=== PATIENT | male | born 1970 | race Caucasian/White ===

== ENCOUNTER 2022-06-15 13:57 | Inpatient (IN) | payer OTHER ==
[~2022-06-15] VITALS: Ht 170.2 cm; Wt 117.9 kg
[2022-06-15 14:22] VITALS: BP_SYST 145
--- NOTE | 2022-06-15 14:22 | NUR ---
Patient triaged and placed in waiting room. VSS and patient appears in no acute distress at this time. Accompanied by SELF, awaiting available bed, and MD notified of need for MSE.
[2022-06-15] MEDS ORDERED: PIPERACILLIN/TAZO 3.375 GM in NS 50 ML IV ONE (14:45)
[2022-06-15] MEDS ORDERED: VANCOMYCIN HCL 1,000 MG in NS 250 ML IV ONE (14:45)
--- NOTE | 2022-06-15 15:06 | NUR ---
Placed in room 04 . Placed on awake overnight monitor, blood pressure machine and pulse oximeter. To gown for exam. Side rails up. Report given to LORAINE LANDA.
--- NOTE | 2022-06-15 15:10 | NUR ---
PT BIB SELF, AWAKE AND ALERT, AOX4. NO SOB OR DISTRESS. PT C/O PAIN TO R FEET, WHICH PRESENTED W/ BLISTER, EDEMA +2, REDNESS AND WARMTH TO THE TOUCH. PT STATED ITS BEEN X4 DAYS. PT STATES PAIN 01/05. PT WAS AMBULATORY W/O ASSISTANCE. PT DENIES N/V. PT HAS HX OF DM2 BUT ADMIT NON COMPLIANCE WITH INSULINE ADMINISTRATION AND BS CHECKS.
[2022-06-15 15:14] LABS: BASOPHILS # (AUTO) 0.1 K/uL (0.0-0.2); BASOPHILS % (AUTO) 0.6 % (0.0-2.0); CALCIUM 9.4 mg/dL (8.4-11.0); CREATININE 1.05 mg/dL (0.55-1.30); EOSINOPHILS % (AUTO) 0.1 % (0.0-4.0); HEMATOCRIT 38.5 % (36-54); HEMOGLOBIN 13.5 g/dL (14.0-18.0); LYMPHOCYTES # (AUTO) 0.6 K/uL (1.0-5.5); MEAN CORPUSCULAR HEMOGLOBIN 29 pg (27-31); MEAN CORPUSCULAR HGB CONC 35 % (32-36); MEAN CORPUSCULAR VOLUME 82 fL (79.0-98.0); MONOCYTES # (AUTO) 1.2 K/uL (0.0-1.0); MONOCYTES % (AUTO) 7.4 % (1.7-9.3); NEUTROPHILS # (AUTO) 13.8 K/uL (1.8-7.7); NEUTROPHILS % (AUTO) 87.9 % (40.0-70.0); PLATELET COUNT (AUTO) 257 K/uL (130-430); RED BLOOD CELL COUNT(AUTO) 4.68 MIL/uL (4.2-6.2); RED CELL DISTRIBUTION WIDTH 13.4 % (9.0-15.0); WHITE BLOOD COUNT (AUTO) 15.7 K/uL (4.8-10.8)
--- NOTE | 2022-06-15 15:15 | NUR ---
MD DR BOONE AT BEDSIDE
[2022-06-15 15:20] LABS: ALBUMIN 2.6 g/dL (3.4-4.8); TOTAL BILIRUBIN 0.8 mg/dL (0.0-1.0)
[2022-06-15] MEDS ORDERED: INSULIN Lispro 100 UNITS/ML, 3 ML VIAL (humaLOG) SUBCUT ONE (15:45)
[2022-06-15] MEDS ORDERED: NACL 0.9% 1,000 ML IV ONE (15:45)
[2022-06-15] MEDS ORDERED: VANCOMYCIN HCL 1000 MG/VIAL IV ONE ×2 (15:53→23:22)
[2022-06-15 15:54] LABS: ERYTHROCYTE SEDIMENTATION RATE 80 MM/HR (0-15)
--- NOTE | 2022-06-15 16:13 | NUR ---
COVID SPECIMEN COLLECTED FROM BILATERAL NARES DELIVERED SPECIMEN TO LAB.
--- NOTE | 2022-06-15 17:37 | NUR ---
Admit bed requested Patient will be admitted to care of . Admitted to MS unit. Diagnosis DIABETIC FOOT ULCER Inpatient (Yes or No) YES Observation (Yes or No) NO Orientation concerns or request close to nursing station (Yes or No) NO Covid Status NEGATIVE On vent or bipap NO Isolation requirements NO Needs a sitter NO From Home (Yes or if No enter name of facility) HOME Requires Dialysis (Yes or No) NO Med Rec Completed (Yes of No) YES
[2022-06-15] MEDS ORDERED: SITA100T11 PO (18:14)
[2022-06-15] MEDS ORDERED: METF-380 PO (18:14)
[2022-06-15] MEDS ORDERED: SIMV-43 PO (18:14)
[2022-06-15] MEDS ORDERED: INSU100V11 SQ (18:14)
[2022-06-15] MEDS ORDERED: LOSA50TA28 PO (18:14)
[2022-06-15] MEDS ORDERED: GLIP10TA21 PO (18:14)
[2022-06-15] MEDS ORDERED: PIPERACILLIN/TAZOBACTAM 3.375 GM/VIAL (ZOSYN) IV ONE ×2 (18:31→23:21)
--- NOTE | 2022-06-15 19:44 | NUR ---
GAVE REPORT TO ONCOMING LORAINE GONZALEZ. PT STABLE. ALL MEDS GIVEN. VSS
--- NOTE | 2022-06-15 20:04 | NUR ---
Received report for patient AOX4 Verbally responsive Able to make needs known Will continue to monitor
--- NOTE | 2022-06-15 20:58 | NUR ---
Patient will be admitted to [facility]. Admitted to MED/SURGE unit. Will go to room 101A. Belongings list completed. Complete and up to date summary report printed. SBAR report to be given at bedside with opportunity for questions.
--- NOTE | 2022-06-15 21:23 | NUR ---
Admission Note Received patient from ER with diagnosis of DIABETIC FOOT ULCER. Initial Plan of Care discussed-patient verbalized understanding. Oriented to room, call light, pain management and safety.
--- NOTE | 2022-06-15 21:23 | NUR ---
Patient presenting with fever, paged Dr. Susan Davis gives following orders: Consults for: Dr. Louie, René, and Wilian NS @ 125/hr Tylenol 650 PO Q6HPRN for mild pain and fever ACHS accucheck with regular insulin sliding scale Zosyn 3.375 q6h IVPB Vancomycin with pharmacy to dose CCHO diet order Addendum: 06/15/22 at 2125 by Terence Posey RN additional order: change patient to telemetry
[2022-06-15] MEDS: ACETAMINOPHEN 325 MG TABLET PO PRN (21:38)
[2022-06-15 22:51] VITALS: BP_SYST 129
[2022-06-15] MEDS ORDERED: VANCOMYCIN HCL 1 GM/NS PREMIX 250 ML IV ONE (23:00)
--- NOTE | 2022-06-15 23:00 | NUR ---
INITIAL NOTE AT INITIAL ASSESSMENT, PATIENT IS RESTING IN BED, STABLE, NO SIGNS OF RESPIRATORY DISTRESS. PATIENT VERBALIZES HEADACHE, PRN MEDICATION GIVEN TO PATIENT FOR HIS HEADACHE. PLAN OF CARE FOR THE EVENING IS COMMUNICATED WITH PATIENT. CALL LIGHT TEACH BACK IS SUCCESSFUL. BED IS LOCKED, AND AT THE LOWEST LEVEL. URINAL AND URINAL CASTRO PROVIDED FOR CONVENIENCE. FALL AND SAFETY PRECAUTIONS WILL BE IN PLACE THROUGHOUT THE SHIFT.
[2022-06-15] MEDS: NACL 0.9% 1,000 ML IV SCH (23:18)
--- NOTE | 2022-06-15 23:30 | NUR ---
WOUND CARE WOUND CARE PERFORMED AT THIS TIME. PATIENT IS UNABLE TO FEEL AND MOVE WITH HIS THREE MIDDLE TOES. HIS LOWER LEG IS RED AND WARM, FLUSHED WITH NS, PATTED DRY. WILL KEEP CLEAN DRY AND OPEN TO AIR, AWAITING FOR MD TO ASSESS. PATIENT TOLERATED WELL. PATIENT VERBALIZES SOME PAIN AT HIS RIGHT ANKLE, STATING THE PAIN "COMES AND GOES" EVEN AT REST. WOUND PICTURES TAKEN IN FILED IN PATIENT CHART.
[2022-06-16] VITALS: BP_SYST 116
[2022-06-16] MEDS: PIPERACILLIN/TAZO 3.375/DEX-IS 50 ML IV SCH ×2 (00:06→23:17)
--- NOTE | 2022-06-16 00:23 | NUR ---
CONSULTATION PAGED/CALLED Reason for Consultation: TACKYCARDIA AND FEVER Person Who was Notified: EXCHANGE Consulting Physician: ELIUD Packaging Associate Specialty: Ordering Physician: ELINA
--- NOTE | 2022-06-16 00:25 | NUR ---
CONSULTATION PAGED/CALLED Reason for Consultation: DIABETIC FOOT ULCER Person Who was Notified: ERICK Consulting Physician: [place] Soft Work Wrapper Examiner Specialty: Ordering Physician: JANAY
--- NOTE | 2022-06-16 01:15 | NUR ---
ROUNDS PATIENT IS SLEEPING, STABLE, NO SIGNS OF RESPIRATORY DISTRESS.
[2022-06-16] MEDS: INSULIN REGULAR, HUMAN 100 UNITS/ML, 3 ML VIAL (humuLIN R) SUBCUT PRN ×5 (02:36→21:32)
[2022-06-16] MEDS: ACETAMINOPHEN 325 MG TABLET PO PRN (03:22)
--- NOTE | 2022-06-16 03:43 | NUR ---
Edith CEDILLO PAGED DR. GUSTAFSON PAGED AT THIS TIME FOR PATIENT'S SEVERE PAIN COMPLAINT ON RIGHT ANKLE. AWAITING PAGE BACK.
--- NOTE | 2022-06-16 05:10 | NUR ---
ROUNDS PATIENT IS SLEEPING, STABLE, NO SIGNS OF RESPIRATORY DISTRESS.
--- NOTE | 2022-06-16 05:35 | NUR ---
CONSULTATION PAGED/CALLED Reason for Consultation: DIABETIC FOOT ULCER Person Who was Notified:EXCHANGE Consulting Physician: DARIAN Business Support Associate Specialty: Ordering Physician: JANAY
--- NOTE | 2022-06-16 05:50 | NUR ---
COMMUNICATION W/ DR. DARIAN FARMER PAGED AT THIS TIME, PATIENT'S SITUATION EXPLAINED TO MD. MD GAVE NEW ORDERS. ALL ORDERS READ BACK AND VERIFIED.
--- NOTE | 2022-06-16 06:29 | NUR ---
CLOSING NOTE PATIENT SLEPT WELL DURING THE NIGHT. PATIENT VERBALIZED THAT PRN MEDICATION GIVEN TO HIM FOR HIS PAIN WERE EFFECTIVE. CALL LIGHT IS WITHIN REACH. BED IS LOCKED, ALARMED, AND AT THE LOWEST LEVEL. FALL, SAFETY, AND RESPIRATORY PRECAUTIONS HAVE BEEN IN PLACE THROUGHOUT THE SHIFT. WILL CONTINUE TO MONITOR UNTIL REPORT IS GIVEN AT BEDSIDE TO AM NURSE.
[2022-06-16] MEDS ORDERED: ACETAMINOPHEN 325 MG TABLET PO PRN (06:45)
[2022-06-16] MEDS: NACL 0.9% 1,000 ML IV SCH ×3 (06:54→21:45)
[2022-06-16] MEDS: traMADol HCL HCL 50 MG TABLET (ULTRAM) PO PRN ×3 (06:58→21:22)
[2022-06-16 07:00] VITALS: BP_SYST 157
[2022-06-16 08:00] VITALS: BP_SYST 157
[2022-06-16 12:00] VITALS: BP_SYST 165
--- NOTE | 2022-06-16 12:13 | NUR ---
Dietitian Recommendations *Continue consistent CHO diet, consider dropping CHO to 45/meal *Consider Glucerna ONS BID to help pt meet nutrition needs *Consider banatrol if pt diarrhea persists GS, RD Please refer to RD assessment for further details Addendum: 06/16/22 at [address] Amended: Links added. Addendum: 06/16/22 at [address] *Consider adding Harrison BID to aid diabetic ulcer healing
[2022-06-16] MEDS: VANCOMYCIN HCL 1,500 MG in NS 250 ML IV SCH (13:55)
[2022-06-16 20:40] VITALS: BP_SYST 154
--- NOTE | 2022-06-16 20:45 | NUR ---
Opening notes Pt asleep, easily awakens no s/s distress noted. Pt connected back to IVF as ordered. Pt has good urine output. Call light within reach. Bed low, locked, siderails up x2. To monitor.
[2022-06-16] MEDS: glipiZIDE XL 5 MG TAB ( GLUCOTROL XL) PO SCH (21:21)
[2022-06-16] MEDS: SIMVASTATIN 20 MG TABLET PO SCH (21:21)
[2022-06-16] MEDS: INSULIN GLARGINE 100 UNITS/ML, 10 ML VIAL SUBCUT SCH (21:31)
[2022-06-17] VITALS: BP_SYST 152
--- NOTE | 2022-06-17 00:05 | NUR ---
Wound care Right foot wound care performed. Cleansed with NS, patted dry, applied hydrogel, covered with optifoam and wrapped with Kerlix gauze. Noted small yellow drainage with odor. Pt tolerated well. To monitor.
[2022-06-17] MEDS: VANCOMYCIN HCL 1,500 MG in NS 250 ML IV SCH ×2 (01:50→12:12)
[2022-06-17] MEDS: ACETAMINOPHEN 325 MG TABLET PO PRN ×2 (01:55→08:18)
[2022-06-17] MEDS: traMADol HCL HCL 50 MG TABLET (ULTRAM) PO PRN ×3 (05:05→20:48)
[2022-06-17] MEDS: NACL 0.9% 1,000 ML IV SCH ×3 (05:15→23:59)
[2022-06-17] MEDS: PIPERACILLIN/TAZO 3.375/DEX-IS 50 ML IV SCH ×4 (06:13→23:59)
[2022-06-17] MEDS: INSULIN REGULAR, HUMAN 100 UNITS/ML, 3 ML VIAL (humuLIN R) SUBCUT PRN ×4 (06:15→21:21)
--- NOTE | 2022-06-17 06:15 | NUR ---
Closing notes/BS check Pt asleep, easily awakens. No s/s distress noted. BS checked 207, 4 units Reg insulin administered per protocol. IV antibiotic administered at ordered rate L. AC clear and patent. Pt states pain is a little better than earlier. Call light within reach. Encouraged pt to elevate R. foot above heart. To endorse to AM nurse.
[2022-06-17 08:13] VITALS: BP_SYST 156
[2022-06-17] MEDS: LOSARTAN POTASSIUM 50 MG TABLET (COZAAR) PO SCH (08:15)
[2022-06-17] MEDS: glipiZIDE XL 5 MG TAB ( GLUCOTROL XL) PO SCH ×3 (08:15→20:47)
[2022-06-17 11:21] VITALS: BP_SYST 161
[2022-06-17 14:39] LABS: BASOPHILS % (AUTO) 0.5 % (0.0-2.0); EOSINOPHILS # (AUTO) 0.1 K/uL (0.0-0.4); EOSINOPHILS % (AUTO) 0.7 % (0.0-4.0); HEMATOCRIT 34.5 % (36-54); HEMOGLOBIN 12.3 g/dL (14.0-18.0); LYMPHOCYTES # (AUTO) 0.9 K/uL (1.0-5.5); LYMPHOCYTES % (AUTO) 8.5 % (20.5-51.5); MEAN CORPUSCULAR HEMOGLOBIN 29 pg (27-31); MEAN CORPUSCULAR HGB CONC 36 % (32-36); MEAN CORPUSCULAR VOLUME 81 fL (79.0-98.0); MONOCYTES # (AUTO) 0.9 K/uL (0.0-1.0); MONOCYTES % (AUTO) 8.4 % (1.7-9.3); NEUTROPHILS # (AUTO) 8.7 K/uL (1.8-7.7); NEUTROPHILS % (AUTO) 81.9 % (40.0-70.0); PLATELET COUNT (AUTO) 277 K/uL (130-430); RED BLOOD CELL COUNT(AUTO) 4.24 MIL/uL (4.2-6.2); RED CELL DISTRIBUTION WIDTH 13.3 % (9.0-15.0); WHITE BLOOD COUNT (AUTO) 10.7 K/uL (4.8-10.8)
[2022-06-17 15:20] VITALS: BP_SYST 114
[2022-06-17 20:00] VITALS: BP_SYST 160
--- NOTE | 2022-06-17 20:35 | NUR ---
Opening notes/Consent Pt AAOx4, VSS, afebrile. R. foot dressing intact. Pt signed consent for R. toes amputation. Per pt surgeon spoke with him already and it will be in the afternoon. Instructed pt he will be NPO after midnight and that he will need to do a CHG bath prior to surgery. Pt verbalized understanding. IVF infusing at ordered rate R. hand 22G clear and patent. Pt c/o R. foot pain. will medicate as needed. Safety maintained. To monitor.
[2022-06-17] MEDS: SIMVASTATIN 20 MG TABLET PO SCH (20:47)
[2022-06-17] MEDS: INSULIN GLARGINE 100 UNITS/ML, 10 ML VIAL SUBCUT SCH (21:18)
[2022-06-18] VITALS: BP_SYST 148
[2022-06-18] MEDS: ACETAMINOPHEN 325 MG TABLET PO PRN (00:07)
[2022-06-18] MEDS: VANCOMYCIN HCL 1,500 MG in NS 250 ML IV SCH ×2 (01:03→13:16)
[2022-06-18 03:19] LABS: BILIRUBIN,URINE NEGATIVE (NEGATIVE); BLOOD, URINE 1+ (NEGATIVE); CLARITY/URINE CLEAR (CLEAR); COLOR,URINE YELLOW (YELLOW); GLUCOSE,URINE 1+ (NEGATIVE); KETONES,URINE NEGATIVE (NEGATIVE); LEUKOCYTE ESTERASE ,URINE NEGATIVE (NEGATIVE); NITRITE, URINE NEGATIVE (NEGATIVE); PROTEIN URINE TRACE (NEGATIVE); UROBILINOGEN,URINE 0.2 (0.2-1.0)
[2022-06-18 04:06] LABS: BACTERIA,URINE FEW /HPF (None Seen); URINE SULFO SALICYLIC ACID NEGATIVE (NEGATIVE)
[2022-06-18 04:07] LABS: MUCUS,URINE None Seen /LPF (None Seen)
[2022-06-18] MEDS: NACL 0.9% 1,000 ML IV SCH ×3 (05:15→21:15)
[2022-06-18] MEDS: PIPERACILLIN/TAZO 3.375/DEX-IS 50 ML IV SCH ×3 (05:22→17:54)
--- NOTE | 2022-06-18 06:21 | NUR ---
Closing notes/BS check Pt awake. BS checked 157. No insulin given as pt is NPO. IVF infusing at ordered rate R. hand clear and patent. Call light within reach. To endorse to AM nurse.
[2022-06-18 07:43] LABS: ALBUMIN 1.9 g/dL (3.4-4.8); CALCIUM 8.2 mg/dL (8.4-11.0); CREATININE 0.77 mg/dL (0.55-1.30); TOTAL BILIRUBIN 0.5 mg/dL (0.0-1.0)
[2022-06-18 07:47] LABS: PROTHROMBIN TIME 10.2 SECS (9.5-12.5)
[2022-06-18 08:00] VITALS: BP_SYST 150
--- NOTE | 2022-06-18 08:00 | NUR ---
INITIAL NOTES Patient is Aox4. No ss of distress noted. Breathing is even and nonlabored, on room air. patient denies SOB. patient states has a headache. Rates pain 7/ 10. Patient is NPO, surgery scheduled for later today. Paged Dr. Louie for clarification if patient can have medications PO and/or IVP pain medications. Vital signs obtained, as documented. IV patent, IVF running. Call light within reach. Safety precautions in place.
[2022-06-18] MEDS: glipiZIDE XL 5 MG TAB ( GLUCOTROL XL) PO SCH ×3 (09:00→22:08)
[2022-06-18] MEDS: LOSARTAN POTASSIUM 50 MG TABLET (COZAAR) PO SCH ×2 (09:00→17:37)
--- NOTE | 2022-06-18 10:14 | NUR ---
Notes Spoke to Dr. Louie. New orders received.
[2022-06-18] MEDS ORDERED: MORPHINE 2 MG/ML INJ. SYRINGE IVP ONE (10:15)
[2022-06-18] MEDS ORDERED: NALOXONE HCL 0.4 MG/ML AMP (NARCAN) IVP PRN ×4 (10:15→15:30)
--- NOTE | 2022-06-18 10:16 | NUR ---
HIGH ALERT NOTE: Called Dr. Louie back at .... identified within the medical roster to verify physician authenticity.
--- NOTE | 2022-06-18 11:35 | NUR ---
Notes Blood glucose was 173 mg/ dL. Patient remains NPO. No insulin administered.
[2022-06-18 12:00] VITALS: BP_SYST 125
--- NOTE | 2022-06-18 12:45 | NUR ---
Notes Patient is resting, eyes closed, appears to be asleep. No ss of distress noted. Breathing is even and nonlabored, on room air. IVF running. Safety precautions in place and call light within reach.
--- NOTE | 2022-06-18 14:05 | NUR ---
Notes Patient was taken to OR for surgery.
[2022-06-18] MEDS ORDERED: METOCLOPRAMIDE HCL 10 MG/2 ML VIAL IVP PRN (14:45)
[2022-06-18] MEDS ORDERED: HYDROmorphone 1 MG/ML INJ. CARTRIDGE IVP PRN (14:45)
[2022-06-18] MEDS ORDERED: ONDANSETRON HCL 4 MG/2 ML VIAL IVP PRN (14:45)
[2022-06-18] MEDS ORDERED: MORPHINE 4 MG INJ. 4 MG/ML VIAL IVP PRN (14:45)
[2022-06-18] MEDS ORDERED: KETOROLAC TROMETHAMINE 30 MG VIAL IVP PRN (14:45)
[2022-06-18 16:15] VITALS: BP_SYST 150
--- NOTE | 2022-06-18 16:15 | NUR ---
NOTES PATIENT RETURNED TO UNIT FROM SURGERY. PATIENT IS AWAKE AND ORIENTED. NO SS OF DISTRESS NOTED. BREATHING IS EVEN AND NONLABORED, ON ROOM AIR. PATIENT DENIES SEVERE PAIN AT THIS TIME. IVF RUNNING. IV PATENT. OBTAINED VITAL SIGNS. R FOOT IS BANDAGED, NO ACTIVE BLEEDING NOTED. DRESSING IS CLEAN, DRY, AND INTACT. BED IS LOCKED, EXIST ALARM ON, AND AT LOWEST POSITION. CALL LIGHT WITHIN REACH.
[2022-06-18] MEDS: INSULIN REGULAR, HUMAN 100 UNITS/ML, 3 ML VIAL (humuLIN R) SUBCUT PRN ×2 (17:32→22:08)
[2022-06-18] MEDS: MORPHINE 2 MG/ML INJ. SYRINGE IVP PRN ×2 (17:52→22:10)
--- NOTE | 2022-06-18 18:59 | NUR ---
Closing notes Patient is eating dinner. No ss of distress at this time. Breathing is even and nonlabored, NC at 2 L O2. Stable IVF running, IV patent. Patient denies severe pain at this time. All needs met. Bed locked, alarm on, and at lowest position. Call light within reach.
--- NOTE | 2022-06-18 20:00 | NUR ---
Pt AAOx4, VSS, afebrile. R. foot dressing intact S/P SX. Lungs are clear, and pt understands wound care. Pt verbalized understanding. IVF infusing at ordered rate R. hand 22G clear and patent. Pt c/o R. foot pain. will medicate as needed. Safety maintained. To monitor.
--- NOTE | 2022-06-18 20:30 | NUR ---
serosanginous showing through dressing. will reinforce, and notify sx in the AM
[2022-06-18 20:32] VITALS: BP_SYST 142
[2022-06-18 20:36] VITALS: BP_SYST 142
[2022-06-18] MEDS: INSULIN GLARGINE 100 UNITS/ML, 10 ML VIAL SUBCUT SCH (22:05)
[2022-06-18] MEDS: SIMVASTATIN 20 MG TABLET PO SCH (22:08)
[2022-06-19] VITALS: BP_SYST 140
[2022-06-19] MEDS: PIPERACILLIN/TAZO 3.375/DEX-IS 50 ML IV SCH ×5 (00:18→23:45)
[2022-06-19] MEDS: ACETAMINOPHEN 325 MG TABLET PO PRN ×2 (00:18→16:22)
[2022-06-19] MEDS: VANCOMYCIN HCL 1,500 MG in NS 250 ML IV SCH ×2 (00:18→12:25)
--- NOTE | 2022-06-19 03:26 | NUR ---
pt has right sided head and leg pain. medication given
[2022-06-19] MEDS: MORPHINE 2 MG/ML INJ. SYRINGE IVP PRN (05:08)
[2022-06-19] MEDS: NACL 0.9% 1,000 ML IV SCH ×3 (05:15→21:09)
[2022-06-19 08:00] VITALS: BP_SYST 143
--- NOTE | 2022-06-19 08:00 | NUR ---
Initial Notes Patient is AOx4. No ss of distress noted. Breathing is even and nonlabored, on room air. Vital signs obtained, as documented. No SOB noted. Patient is eating breakfast. IV patent. IVF running. Bed is locked, at lowest position, and alarm on. Call light within reach.
[2022-06-19] MEDS: HYDROcodone/ACETAMIN 5-325 MG TAB (NORCO/ VICODIN) PO PRN (09:15)
[2022-06-19] MEDS: glipiZIDE XL 5 MG TAB ( GLUCOTROL XL) PO SCH ×3 (09:16→21:32)
[2022-06-19] MEDS: LOSARTAN POTASSIUM 50 MG TABLET (COZAAR) PO SCH (09:16)
[2022-06-19] MEDS ORDERED: MELOXICAM 7.5 MG TABLET PO ONE (10:45)
[2022-06-19] MEDS ORDERED: DOCUSATE SODIUM 100 MG CAPSULE PO PRN (10:45)
[2022-06-19] MEDS: INSULIN REGULAR, HUMAN 100 UNITS/ML, 3 ML VIAL (humuLIN R) SUBCUT PRN ×3 (11:53→21:36)
[2022-06-19 12:00] VITALS: BP_SYST 160
--- NOTE | 2022-06-19 12:41 | NUR ---
Notes New Iv inserted L FA 22 G. Blood return. Patent. IVF running. Wound care done. Dr. Louie came to see patient earlier. No ss of distress noted. Patient denies severe pain at this time. Patient stable. Safety precautions in place and call light within reach.
[2022-06-19 16:00] VITALS: BP_SYST 158
--- NOTE | 2022-06-19 16:30 | NUR ---
Notes Patient is awake. No distress noted. Patient denies pain at this time. Patient is stable. Family at bedside. Safety precautions in place and call light within reach.
--- NOTE | 2022-06-19 19:29 | NUR ---
Closing Notes Patient is eating dinner. No ss of distress noted. Patient denies pain at this time. IV patent. NO SOB noted. Breathing is even and nonlabored, on room air. Patient stable. All needs met. Safety precautions in place and call light within reach. Endorsed care to LORAINE Valdez.
[2022-06-19 20:00] VITALS: BP_SYST 156
[2022-06-19] MEDS: SIMVASTATIN 20 MG TABLET PO SCH (21:32)
[2022-06-19] MEDS: INSULIN GLARGINE 100 UNITS/ML, 10 ML VIAL SUBCUT SCH (21:35)
[2022-06-19] MEDS: MELOXICAM 7.5 MG TABLET PO PRN (21:43)
[2022-06-20] MEDS: VANCOMYCIN HCL 1,500 MG in NS 250 ML IV SCH (01:21)
[2022-06-20 03:24] VITALS: BP_SYST 182
--- NOTE | 2022-06-20 03:45 | NUR ---
pt c/o headache. pt bp182/98 hr 98. pt does not have any bp prn medication. call dr quintana no answer. will call again.
--- NOTE | 2022-06-20 04:23 | NUR ---
2nd attempt to call dr quintana for orders for high bp. no answer.
--- NOTE | 2022-06-20 04:40 | NUR ---
paged dr quintana through exchange for order for high bp
[2022-06-20] MEDS: PIPERACILLIN/TAZO 3.375/DEX-IS 50 ML IV SCH (05:48)
[2022-06-20] MEDS: NACL 0.9% 1,000 ML IV SCH ×3 (05:48→21:46)
[2022-06-20] MEDS ORDERED: LABETALOL HCL 20 MG/4 ML CARTRIDGE IVP PRN (06:15)
--- NOTE | 2022-06-20 07:15 | NUR ---
pt has been npo since midnight. consent signed for procedure. unable to give bp meds due to to them not being available. endorsed order to day rn. all other needs meet at this time.
[2022-06-20 08:22] LABS: BASOPHILS # (AUTO) 0.1 K/uL (0.0-0.2); BASOPHILS % (AUTO) 0.6 % (0.0-2.0); EOSINOPHILS # (AUTO) 0.1 K/uL (0.0-0.4); EOSINOPHILS % (AUTO) 1.5 % (0.0-4.0); HEMATOCRIT 35.8 % (36-54); HEMOGLOBIN 12.2 g/dL (14.0-18.0); LYMPHOCYTES % (AUTO) 11.8 % (20.5-51.5); MEAN CORPUSCULAR HEMOGLOBIN 29 pg (27-31); MEAN CORPUSCULAR HGB CONC 34 % (32-36); MEAN CORPUSCULAR VOLUME 84 fL (79.0-98.0); MONOCYTES # (AUTO) 0.8 K/uL (0.0-1.0); NEUTROPHILS # (AUTO) 6.7 K/uL (1.8-7.7); NEUTROPHILS % (AUTO) 77.1 % (40.0-70.0); PLATELET COUNT (AUTO) 433 K/uL (130-430); RED BLOOD CELL COUNT(AUTO) 4.29 MIL/uL (4.2-6.2); RED CELL DISTRIBUTION WIDTH 13.2 % (9.0-15.0); WHITE BLOOD COUNT (AUTO) 8.7 K/uL (4.8-10.8)
[2022-06-20 08:25] VITALS: BP_SYST 132
[2022-06-20 08:56] LABS: CALCIUM 8.5 mg/dL (8.4-11.0); CREATININE 1.7 mg/dL (0.55-1.30)
[2022-06-20] MEDS ORDERED: MELOXICAM 7.5 MG TABLET PO SCH (09:00)
[2022-06-20] MEDS: glipiZIDE XL 5 MG TAB ( GLUCOTROL XL) PO SCH ×3 (09:00→21:46)
[2022-06-20] MEDS ORDERED: LOSARTAN POTASSIUM 50 MG TABLET (COZAAR) PO SCH (09:00)
[2022-06-20] MEDS ORDERED: NS IRRIG SOLN 1000 ML IR ONE (09:55)
[2022-06-20] MEDS ORDERED: CEFAZOLIN 1 GM IVPB PREMIX 50 ML IV ONE (09:55)
[2022-06-20] MEDS ORDERED: SEVOFLURANE 15 MIN GAS INH ONE (09:55)
[2022-06-20] MEDS ORDERED: KETOROLAC TROMETHAMINE 30 MG VIAL IVP ONE (09:55)
[2022-06-20] MEDS ORDERED: NS 1000 ML IV.SOLN IV ONE (09:55)
[2022-06-20] MEDS ORDERED: PROPOFOL 200MG/ 20ML VIAL (DIPRIVAN) IV ONE (09:55)
[2022-06-20] MEDS ORDERED: NALOXONE HCL 0.4 MG/ML AMP (NARCAN) IVP PRN (11:15)
[2022-06-20] MEDS ORDERED: LR 1,000 ML IV SCH (11:15)
[2022-06-20] MEDS ORDERED: HYDROmorphone 1 MG/ML INJ. CARTRIDGE IVP PRN (11:15)
[2022-06-20] MEDS ORDERED: ONDANSETRON HCL 4 MG/2 ML VIAL IVP PRN (11:15)
[2022-06-20] MEDS ORDERED: LABETALOL 100 MG/ 20ML VIAL IVP PRN (11:15)
[2022-06-20] MEDS: traMADol HCL HCL 50 MG TABLET (ULTRAM) PO PRN (12:26)
[2022-06-20] MEDS: AMPICILLIN SODIUM 2 GM in NS 100 ML IV SCH ×2 (13:46→21:45)
[2022-06-20 17:29] VITALS: BP_SYST 144
[2022-06-20] MEDS: INSULIN REGULAR, HUMAN 100 UNITS/ML, 3 ML VIAL (humuLIN R) SUBCUT PRN ×2 (18:14→21:52)
[2022-06-20 20:00] VITALS: BP_SYST 174
[2022-06-20] MEDS: DOXYCYCLINE HYCLATE 100 MG CAPSULE PO SCH (21:46)
[2022-06-20] MEDS: SIMVASTATIN 20 MG TABLET PO SCH (21:48)
[2022-06-20] MEDS: INSULIN GLARGINE 100 UNITS/ML, 10 ML VIAL SUBCUT SCH (21:49)
[2022-06-20] MEDS: MORPHINE 2 MG/ML INJ. SYRINGE IVP PRN (23:16)
[2022-06-21 01:30] VITALS: BP_SYST 150
[2022-06-21] MEDS: HYDROcodone/ACETAMIN 5-325 MG TAB (NORCO/ VICODIN) PO PRN (02:26)
[2022-06-21] MEDS: AMPICILLIN SODIUM 2 GM in NS 100 ML IV SCH ×3 (05:44→21:53)
[2022-06-21] MEDS: NACL 0.9% 1,000 ML IV SCH ×3 (05:44→21:15)
[2022-06-21 09:53] VITALS: BP_SYST 159
[2022-06-21] MEDS: ACETAMINOPHEN 325 MG TABLET PO PRN (09:58)
[2022-06-21] MEDS: glipiZIDE XL 5 MG TAB ( GLUCOTROL XL) PO SCH ×3 (09:59→21:51)
[2022-06-21] MEDS: DOXYCYCLINE HYCLATE 100 MG CAPSULE PO SCH ×2 (09:59→21:52)
[2022-06-21 11:31] VITALS: BP_SYST 178
[2022-06-21] MEDS: INSULIN REGULAR, HUMAN 100 UNITS/ML, 3 ML VIAL (humuLIN R) SUBCUT PRN ×2 (12:34→21:58)
[2022-06-21] MEDS ORDERED: NIFEdipine 30 MG TAB.ER.24 PO ONE (13:45)
[2022-06-21 14:18] LABS: BASOPHILS % (AUTO) 0.6 % (0.0-2.0); EOSINOPHILS # (AUTO) 0.2 K/uL (0.0-0.4); EOSINOPHILS % (AUTO) 1.8 % (0.0-4.0); HEMOGLOBIN 12.6 g/dL (14.0-18.0); LYMPHOCYTES # (AUTO) 1.1 K/uL (1.0-5.5); LYMPHOCYTES % (AUTO) 12.8 % (20.5-51.5); MEAN CORPUSCULAR HEMOGLOBIN 29 pg (27-31); MEAN CORPUSCULAR HGB CONC 35 % (32-36); MEAN CORPUSCULAR VOLUME 82 fL (79.0-98.0); MONOCYTES # (AUTO) 0.5 K/uL (0.0-1.0); MONOCYTES % (AUTO) 6.1 % (1.7-9.3); NEUTROPHILS # (AUTO) 6.6 K/uL (1.8-7.7); NEUTROPHILS % (AUTO) 78.7 % (40.0-70.0); PLATELET COUNT (AUTO) 395 K/uL (130-430); RED CELL DISTRIBUTION WIDTH 13.5 % (9.0-15.0); WHITE BLOOD COUNT (AUTO) 8.4 K/uL (4.8-10.8)
[2022-06-21 14:28] LABS: CREATININE 1.86 mg/dL (0.55-1.30)
[2022-06-21 14:31] LABS: CALCIUM 9.2 mg/dL (8.4-11.0)
[2022-06-21 17:53] VITALS: BP_SYST 132
[2022-06-21] MEDS ORDERED: NIFEdipine 30 MG TAB.ER.24 PO SCH (21:00)
[2022-06-21] MEDS: SIMVASTATIN 20 MG TABLET PO SCH (21:52)
[2022-06-21] MEDS: MORPHINE 2 MG/ML INJ. SYRINGE IVP PRN (21:54)
[2022-06-21] MEDS: INSULIN GLARGINE 100 UNITS/ML, 10 ML VIAL SUBCUT SCH (21:59)
[2022-06-21 23:20] VITALS: BP_SYST 130
[2022-06-22 01:53] VITALS: BP_SYST 125
[2022-06-22 04:12] VITALS: BP_SYST 129
[2022-06-22] MEDS: NACL 0.9% 1,000 ML IV SCH ×3 (05:58→21:15)
[2022-06-22] MEDS: AMPICILLIN SODIUM 2 GM in NS 100 ML IV SCH ×3 (05:59→21:23)
[2022-06-22] MEDS: HYDROcodone/ACETAMIN 5-325 MG TAB (NORCO/ VICODIN) PO PRN ×3 (06:33→23:43)
[2022-06-22 08:04] LABS: BASOPHILS # (AUTO) 0.1 K/uL (0.0-0.2); BASOPHILS % (AUTO) 0.6 % (0.0-2.0); EOSINOPHILS # (AUTO) 0.1 K/uL (0.0-0.4); EOSINOPHILS % (AUTO) 1.8 % (0.0-4.0); HEMATOCRIT 37.7 % (36-54); HEMOGLOBIN 12.9 g/dL (14.0-18.0); LYMPHOCYTES # (AUTO) 1.1 K/uL (1.0-5.5); LYMPHOCYTES % (AUTO) 13.2 % (20.5-51.5); MEAN CORPUSCULAR HEMOGLOBIN 28 pg (27-31); MEAN CORPUSCULAR HGB CONC 34 % (32-36); MEAN CORPUSCULAR VOLUME 82 fL (79.0-98.0); MONOCYTES # (AUTO) 0.7 K/uL (0.0-1.0); MONOCYTES % (AUTO) 8.1 % (1.7-9.3); NEUTROPHILS # (AUTO) 6.3 K/uL (1.8-7.7); NEUTROPHILS % (AUTO) 76.3 % (40.0-70.0); PLATELET COUNT (AUTO) 409 K/uL (130-430); RED BLOOD CELL COUNT(AUTO) 4.62 MIL/uL (4.2-6.2); RED CELL DISTRIBUTION WIDTH 13.4 % (9.0-15.0); WHITE BLOOD COUNT (AUTO) 8.3 K/uL (4.8-10.8)
[2022-06-22 08:17] LABS: CREATININE 1.5 mg/dL (0.55-1.30)
[2022-06-22] MEDS: DOXYCYCLINE HYCLATE 100 MG CAPSULE PO SCH ×2 (10:04→21:21)
[2022-06-22] MEDS: glipiZIDE XL 5 MG TAB ( GLUCOTROL XL) PO SCH ×3 (10:05→21:21)
[2022-06-22] MEDS: ACETAMINOPHEN 325 MG TABLET PO PRN (10:06)
[2022-06-22] MEDS: NIFEdipine 30 MG TAB.ER.24 PO SCH (10:06)
[2022-06-22 11:10] LABS: URINE SODIUM, RANDOM 63 mmol/L (40-220)
[2022-06-22 11:22] VITALS: BP_SYST 160
[2022-06-22] MEDS: INSULIN REGULAR, HUMAN 100 UNITS/ML, 3 ML VIAL (humuLIN R) SUBCUT PRN ×2 (12:05→21:25)
[2022-06-22 15:19] VITALS: BP_SYST 168
[2022-06-22] MEDS: SIMVASTATIN 20 MG TABLET PO SCH (21:21)
[2022-06-22] MEDS: INSULIN GLARGINE 100 UNITS/ML, 10 ML VIAL SUBCUT SCH (21:23)
[2022-06-22 22:46] VITALS: BP_SYST 152
[2022-06-23 00:16] VITALS: BP_SYST 166
[2022-06-23 04:30] VITALS: BP_SYST 156
[2022-06-23] MEDS: NACL 0.9% 1,000 ML IV SCH ×3 (05:10→21:15)
[2022-06-23] MEDS: AMPICILLIN SODIUM 2 GM in NS 100 ML IV SCH ×3 (05:10→22:49)
[2022-06-23 08:44] VITALS: BP_SYST 179
[2022-06-23] MEDS: glipiZIDE XL 5 MG TAB ( GLUCOTROL XL) PO SCH ×3 (08:47→22:48)
[2022-06-23] MEDS: DOXYCYCLINE HYCLATE 100 MG CAPSULE PO SCH ×2 (08:48→22:48)
[2022-06-23] MEDS: NIFEdipine 30 MG TAB.ER.24 PO SCH (08:48)
[2022-06-23] MEDS ORDERED: DOXY100C5 PO (10:56)
[2022-06-23] MEDS ORDERED: TRAM50TA2 PO (10:56)
[2022-06-23] MEDS ORDERED: PROXL60 PO (10:56)
[2022-06-23] MEDS ORDERED: AMOX500C2 PO (10:56)
[2022-06-23] MEDS ORDERED: MELO-89 PO (10:56)
[2022-06-23] MEDS: HYDROcodone/ACETAMIN 5-325 MG TAB (NORCO/ VICODIN) PO PRN (12:13)
[2022-06-23] MEDS: INSULIN REGULAR, HUMAN 100 UNITS/ML, 3 ML VIAL (humuLIN R) SUBCUT PRN ×3 (12:15→22:55)
[2022-06-23 16:30] VITALS: BP_SYST 164
[2022-06-23] MEDS: SIMVASTATIN 20 MG TABLET PO SCH (21:00)
[2022-06-23] MEDS: INSULIN GLARGINE 100 UNITS/ML, 10 ML VIAL SUBCUT SCH (21:00)
[2022-06-23 21:04] VITALS: BP_SYST 152
--- NOTE | 2022-06-23 23:39 | NUR ---
PATIENT VITALS STABLE, NO SIGNS OF DISTRESS, WOUND VAC CHANGED AND WOUND DRESSING CHANGED BY MD, SCHEDULED MEDICATION ADMINISTERED ON TIME. BLOOD SUGAR 2100 199 MG/DL, INSULIN COVERAGE ADMINISTERED
[2022-06-24 01:25] VITALS: BP_SYST 149
[2022-06-24] MEDS: AMPICILLIN SODIUM 2 GM in NS 100 ML IV SCH ×3 (05:38→21:02)
[2022-06-24] MEDS: NACL 0.9% 1,000 ML IV SCH (05:38)
[2022-06-24 06:07] VITALS: BP_SYST 148
--- NOTE | 2022-06-24 08:03 | NUR ---
Nutrition follow up Admitting Diagnosis Diabetic Foot Ulcer Reviewed Pertinent Medical/Surgical Hx: EMR Medical History Comment: per EMR: 51y male came to ED c/o right foot infection. The patient reportedly tripped and started having induration of the right third toe started increasing inflammation and erythema of the right leg. The patient reported he has been on his medication for diabetes. The patient reports hypertension. The patient endorses some fatigue and sharp right calf pain that is worse with ambulation. PMHx: uncontrolled diabetes, hypertension, Subjective Information Bedside visit deferred due to high workload. Per EMR review the patient is receiving antibiotics, inpatient wound care with discharge planning in progress. Current Diet Order/Nutrition Support: Consistent CHO x 6 days PO intake: ~75% PO intake on average Usual diet at home: regular, low carbohydrate Food Allergies: none Pertinent Medications Piperacillin/tazobactam, Lantus, Regular ISS, Metformin 850 mg TID, Glipizide 10 mg TID, Colace Pertinent Labs POC glucose 147 H Anthropometrics: Height: 5'7" Weight: 260 pounds (117.9 Kg) Body Mass Index: 40.72 Kg/m2, morbidly obese %IBW: 148 [place]/Adjusted Body Weight: 148#/67 kg/ Adjusted IBW: 176 #/80 kg Recent Weight Change: Yes - 7# in 2 weeks, intentional loss Last BM: Jun 19, 2022 Skin Integrity Comment: Miguel Angel: 18 RLE wound Edema: BLE non-pitting Estimated nutrition needs: Estimated Energy Expenditure (kcals/day) 2000- 2400 kcal (25-30 kcal/kg IBW d/t obesity and wound) Estimated Protein Required (g/day) 112-144 g (1.4-1.8g/kg of IBW d/t wound healing) Estimated Fluid Required (l/day) 2-2.4 L (1mL/kcal maintenance) Problem/Etiology/Signs/Symptoms *Inconsistent carbohydrate intake R/T skipping CHO at lunches and incorrect meal macronutrient planning AEB elevated BG with history of uncontrolled DM (Ongoing) Expected Outcomes/Goals Monitor PO intakes w/ goal of meeting >75% estimated nutritional intakes,labs trending WNL, normal GI function, and skin integrity/wt maintenance. (Ongoing) Dietitian Recommendations *Continue consistent CHO diet *Consider daily multivitamin Follow Up: moderate risk f/u 3-5 days
--- NOTE | 2022-06-24 08:19 | NUR ---
Dietitian recommendations: * Continue [facility] diet * Consider daily multivitamin Please refer to nutrition follow up for details. NATHALIE RUBIO
[2022-06-24 08:44] LABS: BASOPHILS # (AUTO) 0.1 K/uL (0.0-0.2); BASOPHILS % (AUTO) 0.7 % (0.0-2.0); EOSINOPHILS # (AUTO) 0.2 K/uL (0.0-0.4); EOSINOPHILS % (AUTO) 2.1 % (0.0-4.0); HEMATOCRIT 36.1 % (36-54); HEMOGLOBIN 12.6 g/dL (14.0-18.0); LYMPHOCYTES # (AUTO) 1.7 K/uL (1.0-5.5); LYMPHOCYTES % (AUTO) 16.5 % (20.5-51.5); MEAN CORPUSCULAR HEMOGLOBIN 28 pg (27-31); MEAN CORPUSCULAR HGB CONC 35 % (32-36); MEAN CORPUSCULAR VOLUME 82 fL (79.0-98.0); MONOCYTES # (AUTO) 0.6 K/uL (0.0-1.0); MONOCYTES % (AUTO) 5.9 % (1.7-9.3); NEUTROPHILS # (AUTO) 7.6 K/uL (1.8-7.7); NEUTROPHILS % (AUTO) 74.8 % (40.0-70.0); PLATELET COUNT (AUTO) 385 K/uL (130-430); RED BLOOD CELL COUNT(AUTO) 4.44 MIL/uL (4.2-6.2); RED CELL DISTRIBUTION WIDTH 13.4 % (9.0-15.0); WHITE BLOOD COUNT (AUTO) 10.2 K/uL (4.8-10.8)
[2022-06-24 09:19] LABS: C-REACTIVE PROTEIN QUANT 1.8 mg/dL (0-0.5); CALCIUM 9.3 mg/dL (8.4-11.0); CREATININE 1.43 mg/dL (0.55-1.30)
[2022-06-24 10:03] VITALS: BP_SYST 171
[2022-06-24] MEDS: glipiZIDE XL 5 MG TAB ( GLUCOTROL XL) PO SCH ×3 (10:12→20:58)
[2022-06-24] MEDS: NIFEdipine 30 MG TAB.ER.24 PO SCH (10:13)
[2022-06-24] MEDS: DOXYCYCLINE HYCLATE 100 MG CAPSULE PO SCH ×2 (10:13→20:58)
[2022-06-24] MEDS ORDERED: POTASSIUM CHLORIDE 20 MEQ TAB.PRT.SR PO ONE (10:45)
[2022-06-24 11:51] LABS: ERYTHROCYTE SEDIMENTATION RATE 81 MM/HR (0-15)
[2022-06-24] MEDS: INSULIN REGULAR, HUMAN 100 UNITS/ML, 3 ML VIAL (humuLIN R) SUBCUT PRN ×2 (11:51→20:55)
[2022-06-24] MEDS: NORMAL SALINE 5 ML DISP.SYRIN IVF SCH ×2 (14:09→22:58)
[2022-06-24] MEDS: MELOXICAM 7.5 MG TABLET PO PRN (14:19)
[2022-06-24 16:00] VITALS: BP_SYST 147
[2022-06-24 19:00] VITALS: BP_SYST 152
[2022-06-24 20:00] VITALS: BP_SYST 152
[2022-06-24] MEDS: INSULIN GLARGINE 100 UNITS/ML, 10 ML VIAL SUBCUT SCH (20:56)
[2022-06-24] MEDS: SIMVASTATIN 20 MG TABLET PO SCH (20:58)
[2022-06-25] VITALS: BP_SYST 148
[2022-06-25] MEDS: MORPHINE 2 MG/ML INJ. SYRINGE IVP PRN (04:59)
[2022-06-25] MEDS: AMPICILLIN SODIUM 2 GM in NS 100 ML IV SCH ×3 (05:04→21:59)
[2022-06-25] MEDS: MELOXICAM 7.5 MG TABLET PO PRN ×2 (06:26→16:25)
[2022-06-25] MEDS: NORMAL SALINE 5 ML DISP.SYRIN IVF SCH ×3 (06:26→21:59)
--- NOTE | 2022-06-25 06:30 | NUR ---
Pt c/o 03/07 headache. Mobic given.
[2022-06-25 07:16] LABS: BASOPHILS # (AUTO) 0.1 K/uL (0.0-0.2); BASOPHILS % (AUTO) 0.6 % (0.0-2.0); EOSINOPHILS # (AUTO) 0.3 K/uL (0.0-0.4); EOSINOPHILS % (AUTO) 2.2 % (0.0-4.0); HEMATOCRIT 35.4 % (36-54); HEMOGLOBIN 12.3 g/dL (14.0-18.0); LYMPHOCYTES # (AUTO) 2.4 K/uL (1.0-5.5); LYMPHOCYTES % (AUTO) 20.6 % (20.5-51.5); MEAN CORPUSCULAR HEMOGLOBIN 28 pg (27-31); MEAN CORPUSCULAR HGB CONC 35 % (32-36); MEAN CORPUSCULAR VOLUME 80 fL (79.0-98.0); MONOCYTES # (AUTO) 0.6 K/uL (0.0-1.0); MONOCYTES % (AUTO) 5.5 % (1.7-9.3); NEUTROPHILS # (AUTO) 8.2 K/uL (1.8-7.7); NEUTROPHILS % (AUTO) 71.1 % (40.0-70.0); PLATELET COUNT (AUTO) 408 K/uL (130-430); RED BLOOD CELL COUNT(AUTO) 4.41 MIL/uL (4.2-6.2); RED CELL DISTRIBUTION WIDTH 13.6 % (9.0-15.0); WHITE BLOOD COUNT (AUTO) 11.6 K/uL (4.8-10.8)
[2022-06-25 07:26] LABS: ALBUMIN 2.5 g/dL (3.4-4.8); C-REACTIVE PROTEIN QUANT 1.7 mg/dL (0-0.5); CALCIUM 8.8 mg/dL (8.4-11.0); CREATININE 1.54 mg/dL (0.55-1.30); TOTAL BILIRUBIN 0.4 mg/dL (0.0-1.0)
[2022-06-25 08:00] VITALS: BP_SYST 149
--- NOTE | 2022-06-25 08:00 | NUR ---
Initial Notes Patient is AOx4. Patient is sitting at the edge of the bed, eating breakfast. No ss of distress noted. Patient denies pain at this time. Breathing is even and nonlabored, on room air. Vital signs obtained, as documented. No SOB noted. Bed locked, alarm on, and at lowest position. Call light within reach.
[2022-06-25] MEDS: NIFEdipine 30 MG TAB.ER.24 PO SCH (09:46)
[2022-06-25] MEDS: DOXYCYCLINE HYCLATE 100 MG CAPSULE PO SCH ×2 (09:46→20:29)
[2022-06-25] MEDS: glipiZIDE XL 5 MG TAB ( GLUCOTROL XL) PO SCH ×3 (09:47→21:39)
--- NOTE | 2022-06-25 09:55 | NUR ---
Notes Patient ambulating in hallway. Denies severe pain. Changed bed linen.
[2022-06-25 10:36] LABS: ERYTHROCYTE SEDIMENTATION RATE 83 MM/HR (0-15)
--- NOTE | 2022-06-25 11:41 | NUR ---
wound care wound care done wound vac changed dressing changed.
[2022-06-25 12:00] VITALS: BP_SYST 183
[2022-06-25] MEDS: INSULIN REGULAR, HUMAN 100 UNITS/ML, 3 ML VIAL (humuLIN R) SUBCUT PRN ×3 (12:09→21:52)
[2022-06-25] MEDS ORDERED: POTASSIUM CHLORIDE 20 MEQ TAB.PRT.SR PO ONE (12:45)
[2022-06-25 16:08] VITALS: BP_SYST 164
--- NOTE | 2022-06-25 16:27 | NUR ---
Notes Patient is resting, in bed, awake. No ss of distress noted. Patient states has headache. Administered Mobic. Safety precautions i n place and call light within reach.
--- NOTE | 2022-06-25 18:41 | NUR ---
Closing Notes Patient is eating dinner in chair by bedside. No ss of distress noted. Breathing is even and nonlabored, on room air. Patient denies pain. Patient is stable. IV patent. All needs met. Bed is locked and at lowest position. Call light within reach.
[2022-06-25 19:00] VITALS: BP_SYST 135
[2022-06-25 20:00] VITALS: BP_SYST 135
[2022-06-25] MEDS: SIMVASTATIN 20 MG TABLET PO SCH (21:47)
[2022-06-25] MEDS: INSULIN GLARGINE 100 UNITS/ML, 10 ML VIAL SUBCUT SCH (21:54)
[2022-06-26] VITALS (7 sets, daily range): BP systolic 129–150
[2022-06-26] MEDS: MORPHINE 2 MG/ML INJ. SYRINGE IVP PRN (04:11)
[2022-06-26] MEDS: AMPICILLIN SODIUM 2 GM in NS 100 ML IV SCH ×3 (05:01→21:27)
[2022-06-26] MEDS: MELOXICAM 7.5 MG TABLET PO PRN ×3 (06:19→23:04)
[2022-06-26] MEDS: NORMAL SALINE 5 ML DISP.SYRIN IVF SCH ×3 (06:22→21:27)
--- NOTE | 2022-06-26 08:00 | NUR ---
Initial Notes Patient is Aox4. ambulatory with steady gait. No ss of distress noted, breathing is even and nonlabored, on room air. Vital signs obtained, as documented. Patient denies pain. denies SOB. Patient is eating breakfast in chair by bedside. PICC line patent. Wound vac to right foot. Bed locked and at lowest position. Call light within reach.
[2022-06-26] MEDS: glipiZIDE XL 5 MG TAB ( GLUCOTROL XL) PO SCH ×3 (09:02→21:03)
[2022-06-26] MEDS: NIFEdipine 30 MG TAB.ER.24 PO SCH (09:02)
[2022-06-26] MEDS: DOXYCYCLINE HYCLATE 100 MG CAPSULE PO SCH ×2 (09:03→21:03)
--- NOTE | 2022-06-26 12:00 | NUR ---
NOTES PATIENT IS EATING LUNCH. NO SS OF DISTRESS NOTED. PATIENT STABLE. DENIES PAIN. SAFETY PRECAUTIONS IN PLACE AND CALL LIGHT WITHIN REACH.
[2022-06-26] MEDS: INSULIN REGULAR, HUMAN 100 UNITS/ML, 3 ML VIAL (humuLIN R) SUBCUT PRN ×3 (12:10→21:23)
--- NOTE | 2022-06-26 14:18 | NUR ---
wound vac approved to [facility] auth # [id number] it will be deliver to bedside
--- NOTE | 2022-06-26 14:22 | NUR ---
Discharge appointments and vendors arranged by [facility] Senior Finance Manager Joellen Outten [phone] Dr. [facility] will call with date and time [facility] [phone] Home PT & Tx, wound care and medication reconciliation Agency will call and schedule visit. [employer] will deliver wound vac to bedside [id number] @ [facility] Please call Patient Support Center [phone] for worsening symptoms or trouble getting your medicine. For care needs when provider office is closed, contact Lashae [facility] at [phone] or Ruth [facility] [phone].
--- NOTE | 2022-06-26 17:30 | NUR ---
NOTES NO CHANGE IN ASSESSMENT. PATIENT SITTING IN CHAIR AND TALKING TO FAMILY AT BEDSIDE. SAFETY PRECAUTIONS IN PLACE AND CALL LIGHT WITHIN REACH.
--- NOTE | 2022-06-26 19:46 | NUR ---
CLOSING NOTE PATIENT IS SITTING IN CHAIR BY BEDSIDE. PATIENT DENIES PAIN. NO SS OF DISTRESS NOTED. NO SOB NOTED. IV PATENT. PATIENT IS STABLE. ALL NEEDS MET. SAFETY PRECAUTIONS IN PLACE AND CALL LIGHT WITHIN REACH. ENDORSED CARE ON ALEXANDRE BARON.
[2022-06-26] MEDS: SIMVASTATIN 20 MG TABLET PO SCH (21:06)
[2022-06-26] MEDS: HYDROcodone/ACETAMIN 5-325 MG TAB (NORCO/ VICODIN) PO PRN (21:10)
[2022-06-26] MEDS: INSULIN GLARGINE 100 UNITS/ML, 10 ML VIAL SUBCUT SCH (21:25)
[2022-06-27] VITALS: BP_SYST 144
[2022-06-27] MEDS: HYDROcodone/ACETAMIN 5-325 MG TAB (NORCO/ VICODIN) PO PRN ×3 (02:46→22:07)
--- NOTE | 2022-06-27 04:22 | NUR ---
Dressing change to right medial leg with xerofoam, covered by optiofoam, and then kerlix. No odor or drainage from wound. Pt c/o heartburn during the night. Pt to discharge home today.
[2022-06-27] MEDS: AMPICILLIN SODIUM 2 GM in NS 100 ML IV SCH ×2 (06:00→14:16)
[2022-06-27] MEDS: NORMAL SALINE 5 ML DISP.SYRIN IVF SCH ×2 (06:40→14:16)
[2022-06-27] MEDS: INSULIN REGULAR, HUMAN 100 UNITS/ML, 3 ML VIAL (humuLIN R) SUBCUT PRN ×2 (06:40→17:10)
[2022-06-27 08:00] VITALS: BP_SYST 154
--- NOTE | 2022-06-27 08:00 | NUR ---
initial notes/ discharge Alert, wound vac on. pain is controlled. Per patient wound vac will be delivered at patient's house upon discharge, patient will call home health agency once he is discharge. Call light in reach. Enc to call for help as needed.
[2022-06-27] MEDS: DOXYCYCLINE HYCLATE 100 MG CAPSULE PO SCH ×2 (08:31→22:05)
[2022-06-27] MEDS: NIFEdipine 30 MG TAB.ER.24 PO SCH (08:33)
[2022-06-27] MEDS: glipiZIDE XL 5 MG TAB ( GLUCOTROL XL) PO SCH ×3 (08:33→22:06)
[2022-06-27] MEDS: MELOXICAM 7.5 MG TABLET PO PRN (10:18)
[2022-06-27 10:30] LABS: CREATININE, URINE 45.2 mg/dL; MICROALBUMIN URINE RANDOM 47.8 ug/ml (NOT ESTABLISHED)
--- NOTE | 2022-06-27 10:34 | NUR ---
Notes per patient he will be pick up man by her friend around 3pm.
[2022-06-27 12:00] VITALS: BP_SYST 146
--- NOTE | 2022-06-27 14:43 | NUR ---
wound vac change done. pt tolerated well.
--- NOTE | 2022-06-27 18:00 | NUR ---
NOTES/DISCHARGE- WOUND VAC JUST DELIVERED, SPOKE TO DR. FARMER AND MADE AWARE OF SOME BLOODY DRAINAGE AFTER CHANGING WOUND VAC EARLIER, STOP WOUND VAC AT THIS TIME. WILL START PAPER WORK AND WILL ENDORSE TO NIGHTS SHIFT.
[2022-06-27 18:19] VITALS: BP_SYST 146
[2022-06-27] MEDS ORDERED: FLU VACC QS2022-23(6MOS UP)/PF 0.5 ML/SYR SYRINGE I.M. PRN (19:00)
--- NOTE | 2022-06-27 19:45 | NUR ---
REPORT RECIEVED, PATIENT NEEDS TO BE DISCHARGED, PREVIOUS SHIFT NURSE REMOVED RIGHT ARM PICC NOTEDDD
--- NOTE | 2022-06-27 20:00 | NUR ---
MATEUSZ RN RESOURCE NURSE REMOVED CURRENT WOUND VAC DRESSING, TOOK PICTURES OF WOUND AND PLACED A WET TO DRY DRESSING, FLU SHOT GIVEN, RIGHT FOOT WET TO DRY DRESSING WITH ORTH SHOE INTACT
[2022-06-27 21:48] VITALS: BP_SYST 156
--- NOTE | 2022-06-27 22:00 | NUR ---
PATIENT GIVEN DISCHARGE INSTRUCTIONS, VERBALIZED UNDERSTANDING, NO DISTRESS NOTED, COMFORT MAINTAINED, INSTRUCTED TO CALL HOME HEALTH IN THE AM AND INFORM HOME HEALTH THAT HE HAS THE PORTABLE WOUND VAC, PRESENT, DISCHARGE VIA W/C WITH ALL PERSONAL BELONGINGS
[2022-06-27] MEDS: SIMVASTATIN 20 MG TABLET PO SCH (22:06)
[2022-06-27] MEDS: INSULIN GLARGINE 100 UNITS/ML, 10 ML VIAL SUBCUT SCH (22:10)
== END 2022-06-27 22:35 | disposition home health service (06) | DRG 617 ==
LOC: SED 13:57 → SMU 17:13 → STU 21:26 → SMU 06-17 18:33
PROVIDERS: ADMIT Internal Medicine; ATTEND Internal Medicine
PROC: 0Y6V0Z0 Detachment at Right 4th Toe, Complete, Open Approach (ICD-10-PCS; 2022-06-18)
PROC: 0Y6T0Z0 Detachment at Right 3rd Toe, Complete, Open Approach (ICD-10-PCS; 2022-06-18)
PROC: 0Y6R0Z0 Detachment at Right 2nd Toe, Complete, Open Approach (ICD-10-PCS; principal; 2022-06-18 14:13)
PROC: 0JBQ0ZZ Excision of Right Foot Subcutaneous Tissue and Fascia, Open Approach (ICD-10-PCS; 2022-06-20)
PROC: 2W1SX6Z Compression of Right Foot using Pressure Dressing (ICD-10-PCS; 2022-06-20)
DX: E11.621 Type 2 diabetes mellitus with foot ulcer (principal); E11.52 Type 2 diabetes mellitus with diabetic peripheral angiopathy with gangrene; E87.1 Hypo-osmolality and hyponatremia; L03.115 Cellulitis of right lower limb; Z68.41 Body mass index [BMI] 40.0-44.9, adult; L97.319 Non-pressure chronic ulcer of right ankle with unspecified severity; M86.8X7 Other osteomyelitis, ankle and foot; N17.9 Acute kidney failure, unspecified; E11.628 Type 2 diabetes mellitus with other skin complications; E11.65 Type 2 diabetes mellitus with hyperglycemia; E66.01 Morbid (severe) obesity due to excess calories; E78.5 Hyperlipidemia, unspecified; D72.829 Elevated white blood cell count, unspecified; E11.40 Type 2 diabetes mellitus with diabetic neuropathy, unspecified; Z20.822 Contact with and (suspected) exposure to COVID-19; E87.6 Hypokalemia; I12.9 Hypertensive chronic kidney disease with stage 1 through stage 4 chronic kidney disease, or unspecified chronic kidney disease; N18.9 Chronic kidney disease, unspecified; E11.22 Type 2 diabetes mellitus with diabetic chronic kidney disease; M72.9 Fibroblastic disorder, unspecified; L97.519 Non-pressure chronic ulcer of other part of right foot with unspecified severity; E11.69 Type 2 diabetes mellitus with other specified complication; Z79.899 Other long term (current) drug therapy
CPT/HCPCS: 36415; 71045; 76770; 80048; 80053; 80202; 81000; 82043; 82570; 82962; 83605; 83735; 84100; 84302; 85025; 85610-TC; 85651-TC; 85730-TC; 86140; 87040; 87070-TC; 87081; 88305; 88311; 93005; 93923; 94010; 99285; A6550; G0378; J0290; J0690; J1815; J1885; J2270; J2543; J2704; J3370; J7030; J7042; J7050